=== PATIENT | female | born 1970 | race Caucasian/White ===

== ENCOUNTER 2020-11-19 23:37 | Emergency (ER) | payer BC ==
[~2020-11-19] VITALS: Ht 152.4 cm; Wt 68.0 kg
[2020-11-20] MEDS ORDERED: EYE ALLERGY REL15 ML OP (01:25)
[2020-11-20] MEDS ORDERED: GENTAFAIR5 ML OP (01:25)
== END 2020-11-20 01:28 | disposition home or self-care (01) ==
LOC: ER 23:37
DX: H57.89 Other specified disorders of eye and adnexa (principal)